=== PATIENT | male | born 1965 | race Caucasian/White ===

== ENCOUNTER → 2017-11-06 | Outpatient (CLI) | payer BC | LOC: COL.RAD 09:14 | DX: M47.812 Spondylosis without myelopathy or radiculopathy, cervical region (principal); R51 Headache | CPT/HCPCS: A9585; Q9967 ==

== ENCOUNTER → 2020-03-09 | Outpatient (CLI) | payer BC | LOC: COL.PUL 03-07 13:00 | DX: R06.02 Shortness of breath (principal) | CPT/HCPCS: J7674 ==